=== PATIENT | female | born 1970 | race American Indian/Alaskan Native ===

== ENCOUNTER 2016-10-05 09:08 | Outpatient (CLI) | payer MEDICAID ==
--- NOTE | 2016-10-05 09:45 | XRay Report ---
ROUTINE CHEST, TWO VIEWS: HISTORY: Cough. The trachea, heart, mediastinal contour, lung mari and bony thorax are unremarkable. IMPRESSION: Unremarkable chest x-ray.
--- NOTE | 2016-10-05 09:59 | Ultrasound Report ---
ULTRASOUND RENAL INDICATION: Hypertension. COMPARISON: None similar. FINDINGS: Renal sonography demonstrates normal renal cortical echogenicity. Grossly preserved renal contours. No hydronephrosis. Included liver somewhat echogenic. RIGHT KIDNEY measures 10.1 x 4.8 x 5 cm with cortical thickness of 1.8 cm. LEFT KIDNEY estimated at 10.6 x 5.3 x 5.5 cm with cortical thickness of 2.3 cm. URINARY BLADDER suboptimally distended and assessed, though grossly unremarkable in so far seen. CONCLUSION: No acute renal sonographic abnormality with few other incidental findings, as described. Thank you for the opportunity to participate in this patient's care.
--- NOTE | 2016-10-06 09:53 | Mammography Report ---
BILATERAL MAMMOGRAM: No previous studies available. CAD study utilized. FINDINGS: Scattered glandular parenchyma bilaterally. No distinct mass or microcalcification. No focal architectural distortion. Normal axilla. IMPRESSION: Benign findings. Annual follow-up recommended. BI-RADS CATEGORY: 2 = Benign ACR BI-RADS MAMMOGRAPHIC CODES: 0 = Needs additional imaging evaluation; 1 = Negative; 2 = Benign; 3 = Probably benign; 4 = Suspicious; 5 = Malignant; 6 = Known biopsy-proven malignancy COMMENT: 1. Dense breast tissue, i.e., adenosis, fibrocystic changes, etc., may obscure an underlying neoplasm. 2. Approximately 10% of cancers are not detected with mammography. 3. A negative mammography report should not delay biopsy if a clinically suspicious mass is present. COMMENT: Patient follow-up letters are generated in [employer].
== END 2016-10-05 09:09 | disposition home or self-care (01) ==
LOC: US 09:08
PROVIDERS: ATTEND Internal Medicine Hematology & Oncology
DX: Z12.31 Encounter for screening mammogram for malignant neoplasm of breast (principal); I10 Essential (primary) hypertension; N32.89 Other specified disorders of bladder; R05 Cough
CPT/HCPCS: 71020; 76770; G0202; 77067